=== PATIENT | male | born 1995 | race Caucasian/White ===

== ENCOUNTER 2018-08-10 16:16 | Emergency (ER) | payer MEDICAID ==
[~2018-08-10] VITALS: Ht 162.6 cm; Wt 57.2 kg
[2018-08-10 16:24] VITALS: Ht 162.6 cm; Wt 57.2 kg
[2018-08-10 16:56] VITALS: BP 128/81
== END 2018-08-10 16:56 | disposition home or self-care (01) ==
LOC: ED 16:16
DX: S31.135A Puncture wound of abdominal wall without foreign body, periumbilic region without penetration into peritoneal cavity, initial encounter (principal); X58.XXXA Exposure to other specified factors, initial encounter; Y93.89 Activity, other specified; Y92.89 Other specified places as the place of occurrence of the external cause; Y99.8 Other external cause status